=== PATIENT | male | born 1990 | race Caucasian/White ===

== ENCOUNTER 2023-10-14 16:10 | Emergency (ER) | payer SELFPAY ==
[2023-10-14 16:19] VITALS: BP 150/70; PULSE 78; RESP 16; TEMP 36.5
--- NOTE | 2023-10-14 16:45 | DI.RAD_ITS ---
Exam(s) XR KNEE RT 3V AP,LAT,MAHOGANY EXAM: XR KNEE RT 3V AP,LAT,MAHOGANY CLINICAL HISTORY: R knee pain. TECHNIQUE: 2D digital imaging was performed. Three views. COMPARISON: No exams were available for comparison FINDINGS: BONES: No acute fracture is present. No bony destructive lesion is seen. JOINTS: The knee is normally aligned. No joint effusion is seen. SOFT TISSUE: Normal. IMPRESSION: Unremarkable radiographs of the right knee. DATA REPOSITORY: RADIATION DOSE DELIVERED:
--- NOTE | 2023-10-14 18:04 | ED.GENADUL_ITS ---
Discharge Plan Disposition Patient Disposition: Home Condition: Stable Discharge Details Clinical Impression: Internal derangement of right knee Primary Care Provider: Unknown,Unknown ED Provider: David Goodrich Discharge Instructions Instructions: Knee Sprain (ED), Meniscus Tear (ED) Additional Instructions: You were seen in the emergency department for your right knee injury. I think you have an internal knee injury to ligament or possibly the meniscus. We are providing you with a hinged knee brace to use, please ambulate as tolerated, please follow-up with orthopedics for definitive evaluation, an MRI is the only study that can image the structures that I believe are injured in your knee. Please use therapeutic dosing of Tylenol (acetamenophen) & Advil (ibuprofen) in an alternating fashion as follows: Take 1000mg of Tylenol every 6 hours without missing doses- that is 4 times per day. Long Term in between the Tylenol dosings, take 400-600mg of Advil also on a 6 hour schedule, that is also 4 times per day. The daily maximum dosing of Tylenol is 4000mg, and the daily maximum dosing of Advil is 2400mg. This is safe to do for weeks. Please note that some common cold medications & prescription pain medications may contain acetamenophen and you need to read OTC drug labels and factor that in to maximum daily dosings. Referrals: [facility] [Provider Group] Discharge Data Discharge Date/Time-TO BE ENTERED AT DEPARTURE: 10/14/23 18:34 HPI General Date/Time Provider Initiated Documentation: 10/14/23 16:33 . HPI Narrative: 33 year-old male presents to ED today by POV/ambulating with a chief complaint of R knee pain with onset the past couple days. Patient is R-foot dominant. Quality described as feels like it locks up and clicks- denies trauma, no radiation to unilateral leg swelling, numbness/tingling, femur/garcia pain, is able to ambulate. Severity is described as moderate/10. Palliating factors include nothing specific. Provoking factors include nothing specific. Patient not anticoagulated. General Stated Complaint: Orthopedic EUSEBIO: 4 Review of Systems All systems reviewed & are unremarkable except as noted in HPI and below Exam Narrative Exam Narrative: GENERAL APPEARANCE: Well-nourished, non-toxic, awake and alert, atraumatic, no acute distress. SKIN: Warm, pink, dry, intact, without rashes/lesions/ulcerations. HEAD: Normocephalic, atraumatic, normal hair distribution for gender/age. EYES: Pupils PERRLA, EOMs intact without nystagmus, normal conjunctiva, no exudates on lids/lashes. ENT: Nares patent, no circumoral cyanosis, no facial swelling NECK: Supple, trachea midline, painless cervical ROM. LUNGS/CHEST: Non-labored respirations, normal A/P diameter, symmetrical expansion, no chest wall deformity HEART (CV/PV): No peripheral edema, no JVD. ABDOMEN: Soft, non-distended, no guarding. MSK: Normal ROM, no swelling/deformity to bilateral UEs or LEs, moving all extremities without weakness, no cyanosis, spine midline without tenderness, normal curvature. R LE: No tenderness with varus valgus forces, no ligamentous laxity with anterior drawer/Lico's test, Zoran positive possible lateral meniscal tear, no crepitus, neurovascular intact distal NEURO: Mental Status AAOx4 - alert to person, place, time, events No facial droop, no forehead involvement. Motor: No focal weakness - strength 5/5 in bilateral UEs and LEs, proximal and distal, symmetric. Sensory: sensation intact to light touch globally. Gait mildly antalgic R leg PSYCH: euthymic, cooperative, pleasant, appropriate speech Course Vital Signs Vital signs: Vital Signs Temperature 36.5 C 10/14/23 16:19 Pulse 78 10/14/23 16:19 Respiratory Rate 16 10/14/23 16:19 Blood Pressure 150/70 H 10/14/23 16:19 Temperature 36.5 C 10/14/23 16:19 Temperature Source Tympanic 10/14/23 16:19 Pulse 78 10/14/23 16:19 Respiratory Rate 16 10/14/23 16:19 Respiratory Effort Normal 10/14/23 17:03 Blood Pressure 150/70 H 10/14/23 16:19 Blood Pressure Position Sitting 10/14/23 16:19 Oxygen Delivery Method Room Air 10/14/23 16:19 Oxygen Flow Rate 0 10/14/23 16:19 Pain Level 6 10/14/23 17:03 Comment pain increases to 6/10 when walking. 10/14/23 16:19 Medical Decision Making This dictation utilizes [id number] dictation software and may contain unedited grammatical errors. 33 y/o M presents to ED today with a chief complaint of R knee pain, ongoing for a couple days, atraumatic onset- denies numbness/tingling, otherwise healthy. Patient is R-foot dominant. Patients' medical history: negative, otherwise healthy. Family and social history: works on his feet all day. Pertinent exam findings / vital signs include R LE: No tenderness with varus valgus forces, no ligamentous laxity with anterior drawer/Lico's test, Zoran positive possible lateral meniscal tear, no crepitus, neurovascular intact distal. Differential / pathologies of concern include Ligamentous Injury, Meniscus Tear, Fracture, Sprain/Strain. Diagnostic studies of: -XR R Knee - no acute fracture seen. Interventions of: -Hinged knee brace. ED Course/Assessment/Plan: 33-year-old otherwise healthy male presents with atraumatic right knee pain, is right foot dominant, there is question of meniscal injury on exam and no fracture seen on x-ray, he is neurovascularly intact distal, I provided hinged knee brace recommend RICE therapy as well as therapeutic dosing of APAP/NSAIDs and follow-up with orthopedics, the patient does not have insurance so I do not know if he will follow-up in a timely manner but he does have people in the community helping him to try and obtain health insurance. Findings not consistent with fracture or neurovascular compromise. Disposition of Internal Derangement of Right Knee. Patient verbalized understanding of the plan and return to ED criteria and engaged in shared decision making. Medical Records Medical records reviewed: Yes I reviewed the patient's medical records. Imaging Data Radiologic Study: Attestation: I personally reviewed and interpreted this imaging study as follows: Imaging: X-Ray Radiologist's impression: EXAM: XR KNEE RT 3V AP,LAT,MAHOGANY CLINICAL HISTORY: R knee pain. TECHNIQUE: 2D digital imaging was performed. Three views. COMPARISON: No exams were available for comparison FINDINGS: BONES: No acute fracture is present. No bony destructive lesion is seen. JOINTS: The knee is normally aligned. No joint effusion is seen. SOFT TISSUE: Normal. IMPRESSION: Unremarkable radiographs of the right knee. Quality:SDOH Health Related Social Needs: No Data to Display PFSH All Active Problems (Updated 10/14/23 @ 18:12 by DANIEL Wallis) Internal derangement of right knee (Acute) Social History Smoking risk assessment performed?: No Housing: house Do you feel safe at home: Yes Do you feel safe in your relationship?: Yes
== END 2023-10-14 18:34 | disposition home or self-care (01) ==
PROVIDERS: Emergency Provider Physician Assistant
DX: M23.91 Unspecified internal derangement of right knee (principal)
CPT/HCPCS: 73562; 99283

== ENCOUNTER 2024-06-03 21:45 | Emergency (ER) | payer SELFPAY ==
[2024-06-03 21:46] VITALS: BP 123/77; PULSE 96; RESP 20; TEMP 36.7; O2SAT 100
--- NOTE | 2024-06-03 22:00 | DI.RAD_ITS ---
Exam(s) XR CHEST 2V PA LATERAL EXAM: XR CHEST 2V PA LATERAL CLINICAL HISTORY: cough with R rib pain TECHNIQUE: 2D digital imaging was performed of the chest. Three images were obtained. PA and later al views were obtained. COMPARISON: No exams were available for comparison FINDINGS: MEDIASTINUM: Normal. HEART: Normal. PULMONARY VASCULATURE: Normal. LUNGS: The lungs are hyperinflated. No focal consolidation is seen. PLEURAL SPACE: No pleural effusion or pneumothorax. BONE:Within normal limits for the patient's age. There is a mild right convex thoracic scoliosis. OTHER FINDINGS:Normal. IMPRESSION: 1. No focal consolidating infiltrates. 2. Hyperinflation of the lungs which can reflect reactive airways disease. 3. No acute osseous abnormality. DATA REPOSITORY: RADIATION DOSE DELIVERED:
--- NOTE | 2024-06-03 22:08 | ED.GENADUL_ITS ---
Discharge Plan Disposition Patient Disposition: Home Discharge Details Clinical Impression: Cough Primary Care Provider: Unknown,Unknown ED Provider: Lou Lion Home Meds and New Rx's Prescriptions: New benzonatate 100 mg capsule 100 mg PO TID PRNQty: 14 0RF Discharge Instructions Instructions: Cough in adults Additional Instructions: Your chest x-ray did not show any signs of pneumonia. Your COVID/flu/RSV test were also negative. Your cough is most likely due to a viral illness. I recommend that instead of taking DayQuil or NyQuil you switch to Mucinex DM, which is an effective anticough medication. You may also use the benzonatate prescribed as needed. The discomfort in your ribs is likely muscle strain. You may use tylenol 650 mg every 6 hours or ibuprofen 400 mg every 8 hours as needed for discomfort. I recommend that you also use Vicks VapoRub, humidifier at bedside, and elevation of the head of your bed to help you with cough. While awake throat lozenges, pineapple juice, and tea with honey may also be soothing on the cough reflex. Return to emergency care if you develop new difficulty breathing, fevers associated with cough, or if you are very worried and need to be rechecked again immediately. HPI General Date/Time Provider Initiated Documentation: 06/03/24 21:51 . HPI Narrative: Richard is a 33 year old male who presents to the emergency dept for evaluation of cough x 2 days, he reports symptoms started 2 days ago with chills, progressed to cough that is occasionally productive of greenish sputum accompanied by right sided chest discomfort with coughing. He denies associated fever, congestion, sore throat, ear pain, shortness of breath, nausea/vomiting, change in bowel or bladder function, abdominal pain, rashes. No known COVID contacts. Physical exam very reassuring. Patient is alert and oriented, no acute distress. Easy work of breathing, lungs are clear bilaterally. Normal heart sounds. Normal gait. Mucous membrane DDx includes but is not limited to: Viral illness, postnasal drip associated cough, GERD, less likely pneumonia I independently interpreted the following tests: COVID/flu/RSV negative. Chest x-ray unremarkable, no obvious infiltrates noted. History and presentation consistent with viral cough, no indication at this time for starting antibiotics. Reviewed discharge instructions with patient, including symptomatic management, red flags indicate need for return to emergency care, and follow-up instructions if cough lasts longer than 3 weeks. He voices agreement with plan of care. Prescription for Lety Petty sent to pharmacy. Related Data Home Medications ?Medication ?Instructions ?Recorded ?Confirmed benzonatate 100 mg capsule 100 mg PO TID PRN #14 caps 06/03/24 Previous Rx's ?Medication ?Instructions ?Recorded benzonatate 100 mg capsule 100 mg PO TID PRN #14 caps 06/03/24 Allergies Allergy/AdvReac Type Severity Reaction Status Date / Time No Known Allergies Allergy Unverified 06/03/24 21:54 General Stated Complaint: GenMedical EUSEBIO: 3 Review of Systems Narrative: see HPI Exam Const General: cooperative, healthy appearing, comfortable, no acute distress, well developed and well groomed Nutritional Appearance: thin Orientation: alert and oriented x3 HENMT Head: normal to inspection Face and sinus: normal facial exam Mouth: moist mucous membranes Chest Chest: normal inspection of the chest and normal palpation of entire chest wall Resp Effort & Inspection: normal respiratory effort and able to speak in complete sentences Auscultation: clear to auscultation bilaterally Cardio Rate: regular rate Rhythm: regular rhythm Skin General skin exam: no rashes or lesions noted Course Vital Signs Vital signs: Vital Signs Temperature 36.7 C 06/03/24 21:46 Pulse 96 H 06/03/24 21:46 Respiratory Rate 20 06/03/24 21:46 Blood Pressure 123/77 06/03/24 21:46 Pulse Oximetry 100 06/03/24 21:46 Temperature 36.7 C 06/03/24 21:46 Temperature Source Temporal Artery Scan 06/03/24 21:46 Pulse 96 H 06/03/24 21:46 Respiratory Rate 20 06/03/24 21:46 Respiratory Effort Normal, Non-Labored 06/03/24 21:53 Blood Pressure 123/77 06/03/24 21:46 Pulse Oximetry 100 06/03/24 21:46 Oxygen Delivery Method Room Air 06/03/24 21:46 Oxygen Flow Rate 0 06/03/24 21:46 Pain Level 0 06/03/24 21:46 Medical Decision Making Quality:SDOH Health Related Social Needs: No Data to Display PFSH All Active Problems (Updated 06/03/24 @ 23:00 by Lou Dias) Cough (Acute) Social History Smoking/Tobacco Use Status: Never Smoking risk assessment performed?: Yes Substance use type: does not use Housing: house Do you feel safe at home: Yes Do you feel safe in your relationship?: Yes
--- OUTSIDE RECORDS SUMMARY | 2024-06-03 22:40 | XMS_ITS | Encounter Summary ---
Author Organization [facility] [place] [address] Care Team Providers Care Director Of Casino Marketing Name Role Phone Wilbert Dorman MD Primary Care Provider [phone] Encounter Details Date Type Department Care Team (Late st Contact Info) Description 07/28/2013 Telephone Pediatric [place] [phone] Heidy Hart RN Social History Tobacco Use Types Packs/Day Years Used Date Smoking Tobacco: Never Comments:No smokers in house hold Sex and Gender Information Value Date Recorded Sex Assigned at Not on file Gender Identity Not on file Sexual Orientation Not on file documented as of this encounter Miscellaneous Notes * Telephone Encounter - Heidy Hart RN - 07/28/2013 3:[address] Flood reviewed the lab work done on 06/27/13 at [facility] in [place], [place]. Mailed lab slip to home advising per Dr Flood, an AM LH,FSH,total Testosterone. Should return to see Dr Flood if labs remain low documented in this encounter Plan of Treatment Not on file documented as of this encounter Visit Diagnoses Not on filedocumented in this encounter Care Teams Director Of Casino Marketing Relationship Specialty Start Date End Date Wilbert Dorman MD [address] [address] PCP - General 07/09/10 documented as of this encounter
--- OUTSIDE RECORDS SUMMARY | 2024-06-03 22:40 | XMS_ITS | Encounter Summary ---
Author Organization [facility] [address] Care Team Providers Care Pin Drafter Name Role Phone Wilbert Dorman MD Primary Care Provider [phone] Encounter Details Date Type Department Care Team (Late st Contact Info) Description 09/05/2013 Telephone Pediatric [place] [phone] Heidy Hart RN Social History Tobacco Use Types Packs/Day Years Used Date Smoking Tobacco: Never Comments:No smokers in house hold Sex and Gender Information Value Date Recorded Sex Assigned at Not on file Gender Identity Not on file Sexual Orientation Not on file documented as of this encounter Miscellaneous Notes * Telephone Encounter - Heidy Hart RN - 09/05/2013 3:02 PM EST Message left on home answering machine re the 8AM lab work. Requested return call documented in this encounter Plan of Treatment Not on file documented as of this encounter Visit Diagnoses Not on filedocumented in this encounter Care Teams Pin Drafter Relationship Specialty Start Date End Date Wilbert Dorman MD [facility] [address] [place] [address] PCP - General 07/09/10 documented as of this encounter
--- OUTSIDE RECORDS SUMMARY | 2024-06-03 22:40 | XMS_ITS | Encounter Summary ---
Author Organization [facility] [place] [address] Care Team Providers Care Manager Of Program Name Role Phone Wilbert Dorman MD Primary Care Provider [phone] Encounter Details Date Type Department Care Team (Late st Contact Info) Description 04/04/2014 Telephone [place] [phone] Heidy Hart RN Social History Tobacco Use Types Packs/Day Years Used Date Smoking Tobacco: Never Comments:No smokers in house hold Sex and Gender Information Value Date Recorded Sex Assigned at Not on file Gender Identity Not on file Sexual Orientation Not on file documented as of this encounter Miscellaneous Notes * Telephone Encounter - Heidy Hart RN - 04/04/2014 8:46 AM EDT Multiple phone calls to family never returned. Will not plan further endocrine followup at this time documented in this encounter Plan of Treatment Not on file documented as of this encounter Visit Diagnoses Not on filedocumented in this encounter Care Teams Manager Of Program Relationship Specialty Start Date End Date Wilbert Dorman MD [facility] [address] [place] [address] PCP - General 07/09/10 documented as of this encounter
--- OUTSIDE RECORDS SUMMARY | 2024-06-03 22:40 | XMS_ITS | Encounter Summary ---
Author Organization [facility] Address [facility] [place] [address] Care Team Providers Care Undergraduate Advisor Name Role Phone Wilbert Dorman MD Primary Care Provider [phone] Encounter Details Date Type Department Care Team (Late st Contact Info) Description 07/28/2013 Orders Only Pediatric [place] [address] Jamshid Flood MD [facility] [address] [place] [address] Pubertal delay (Primary Dx) Social History Tobacco Use Types Packs/Day Years Used Date Smoking Tobacco: Never Comments:No smokers in house hold Sex and Gender Information Value Date Recorded Sex Assigned at Not on file Gender Identity Not on file Sexual Orientation Not on file documented as of this encounter Plan of Treatment Not on file documented as of this encounter Results * (ABNORMAL) Testosterone, total (06/27/2013 4:56 PM EST) Testosterone 153(EXTER NAL/ABN) EXTERNAL LAB Comment:[id number] ng/dL [facility] rp Blood specimen (specimen) 06/27/2013 4:56 PM EST Jamshid Flood MD CHEMISTRY ORDERABLES EXTERNAL LAB documented in this encounter Visit Diagnoses Diagnosis Pubertal delay- Primary Delay in sexual development and puberty, not elsewhere classified Pubertal delay Delay in sexual development and puberty, not elsewhere classified documented in this encounter Care Teams Undergraduate Advisor Relationship Specialty Start Date [place] [address] PCP - General 07/09/10 documented as of this encounter
--- OUTSIDE RECORDS SUMMARY | 2024-06-03 22:40 | XMS_ITS | Clinical Summary ---
Author Organization [facility] Address [facility] [place] [address] Care Team Providers Care Hospital Mortician Name Role Phone Wilbert Dorman MD Primary Care Provider [phone] Allergies No known active allergies Medications No known medications Active Problems Problem Noted Date Diagnosed Date Delayed puberty 06/18/2008 Overview (05/16/2012): Markedly delayed puberty. Treated with two courses of testosterone. Failed to progress after coming off therapy. Altered sense of smell, raising concern about Kallman syndrome. Assessment & Plan (12/24/2011 7:55 PM EDT): Richard has had very significant progression in his puberty. His testicular volume is now normal adult at 20-25 ml (increased from 6 ml at the last visit), and pubertal development is Abdulaziz V. If he does have Kallman syndrome, it must be a milder variant. We agreed to check his testosterone, LH and FSH locally. If those labs are normal, then I see no need for further testing. If his testosterone is inadequate, then we will arrange for [place] [facility] [place] we will recommend resumption of testosterone treatment. Given his physical findings, I do not think that treatment will be needed. Immunizations Name Administration Dates Next Due Influenza Vaccine, Whole 06/16/2008 Family History Medical History Relation Comments High Blood Pressure Maternal Grandfather High Cholesterol Maternal Grandfather Myocardial Infarction Maternal Grandfather * Paternal Grandfather Alzheimer Disease Paternal Grandfather Relation Status Comments Father Alive Maternal Grandfather Alive Maternal Grandmother Alive Mother Alive Paternal Grandfather Paternal Grandmother Alive Social History Tobacco Use Types Packs/Day Years Used Date Smoking Tobacco: Never Comments:No smokers in house hold Sex and Gender Information Value Date Recorded Sex Assigned at Not on file Gender Identity Not on file Sexual Orientation Not on file Last Filed Vital Signs Vital Sign Reading Time Taken Comments Blood Pressure 112/58 12/24/2011 2:15 PM EDT Pulse 65 12/24/2011 2:15 PM EDT Temperature - - Respiratory Rate 16 12/24/2011 2:15 PM EDT Oxygen Saturation - - Inhaled Oxygen Concentration - - Weight 85 kg (187 lb 6.4 oz) 12/24/2011 2:15 PM EDT Height 185.6 cm (6' 1.07) 12/24/2011 2:15 PM ED T Body Mass Index 24.68 12/24/2011 2:15 PM EDT Plan of Treatment Health Maintenance Due Date Last Done Comments HIV screen 2010 Hepatitis C Screening 2010 Hepatitis B vaccine (0-59 yrs) (1) 2011 Tetanus/Diphtheria/Pertussis Vaccines (1 - Tdap) 08/16 Covid-19 Vaccine (1 - 2022-24 season) 2024 Influenza (Flu) vaccine (1 o f 1 - Influenza standard series) 04/17/2024 06/16/2008 Care Teams Hospital Mortician Relationship Specialty Start Date End Date Wilbert Dorman MD [address] [address] PCP - General 07/09/10
--- OUTSIDE RECORDS SUMMARY | 2024-06-03 22:40 | XMS_ITS | Encounter Summary ---
Author Organization [facility] Address [facility] [place] [address] Care Team Providers Care Associate Financial Representative Name Role Phone Wilbert Dorman MD Primary Care Provider [phone] Encounter Details Date Type Department Care Team (Late st Contact Info) Description 08/01/2013 External Results Pediatric [place] [address] Jamshid Flood MD [facility] [place] [address] Pubertal delay Social History Tobacco Use Types Packs/Day Years Used Date Smoking Tobacco: Never Comments:No smokers in house hold Sex and Gender Information Value Date Recorded Sex Assigned at Not on file Gender Identity Not on file Sexual Orientation Not on file documented as of this encounter Plan of Treatment Not on file documented as of this encounter Procedures Procedure Name Priority Date/Time Associated Diagnosis Comments EXTERNAL LAB RESULTS Routine 06/27/2013 4:56 PM EST TESTOSTERONE, TOTAL Routine 06/27/2013 4 :56 PM EST Pubertal delay documented in this encounter Results * (ABNORMAL) External Lab Results (06/27/2013 4:56 PM EST) Testo Free (DECEMBER) 2.2(HYPNOTHERAPIST AL/ABN) EXTERNAL LAB Comment:[facility] 9.3-26.5 pg/ mL Blood specimen (specimen) 06/27/2013 4:56 PM EST Jamshid Flood MD CHEMISTRY ORDERABLES EXTERNAL LAB * (ABNORMAL) Testosterone, total (06/27/2013 4:56 PM EST) Testosterone 153(EXTER NAL/ABN) EXTERNAL LAB Comment:[id number] ng/dL [facility] rp Blood specimen (specimen) 06/27/2013 4:56 PM EST Jamshid Flood MD CHEMISTRY ORDERABLES Performing Organization Address City/[facility]/ZIP Co de Phone Number EXTERNAL LAB documented in this encounter Visit Diagnoses Diagnosis Pubertal delay Delay in sexual development and puberty, not elsewhere classified documented in this encounter Care Teams Associate Financial Representative Relationship Specialty Start Date End Date [place] [address] PCP - General 07/09/10 documented as of this encounter
--- OUTSIDE RECORDS SUMMARY | 2024-06-03 22:40 | XMS_ITS | Encounter Summary ---
Author Organization [facility] [place] [address] Care Team Providers Care Collision Estimator Name Role Phone Wilbert Dorman MD Primary Care Provider [phone] Encounter Details Date Type Department Care Team (Late st Contact Info) Description 01/14/2012 Telephone Pediatric [place] [id number] Heidy Hart RN Social History Tobacco Use Types Packs/Day Years Used Date Smoking Tobacco: Never Comments:No smokers in house hold Sex and Gender Information Value Date Recorded Sex Assigned at Not on file Gender Identity Not on file Sexual Orientation Not on file documented as of this encounter Miscellaneous Notes * Telephone Encounter - Heidy Hart RN - 01/27/2012 2:52 PM EDT . documented in this encounter Plan of Treatment Not on file documented as of this encounter Visit Diagnoses Not on filedocumented in this encounter Care Teams Collision Estimator Relationship Specialty Start Date End Date Wilbert Dorman MD [address] [address] PCP - General 07/09/10 documented as of this encounter
--- OUTSIDE RECORDS SUMMARY | 2024-06-03 22:41 | XMS_ITS | Encounter Summary ---
Author Organization [facility] Address [facility] [place] [address] Care Team Providers Care Household Refrigeration Mechanic Name Role Phone Wilbert Dorman MD Primary Care Provider Reason for Visit * Reason Comments Delayed Puberty Encounter Details Date Type Department Care Team (Latest Contact Info) Description 12/24/2011 2:30 PM EDT Office Visit [place] [address] Jennifer Denis MD [facility] [address] [place] [address] Delayed puberty (Primary Dx) Discharge Disposition: Home Social History Tobacco Use Types Packs/Day Years Used Date Smoking Tobacco: Never Comments:No smokers in house hold Sex and Gender Information Value Date Recorded Sex Assigned at Not on file Gender Identity Not on file Sexual Orientation Not on file documented as of this encounter Last Filed Vital Signs Vital Sign Reading [...] Mass Index 24.68 12/24/2011 2:15 PM EDT documented in this encounter Progress Notes * Jennifer Denis MD - 12/24/2011 8:07 PM EDT Subjective: Patient ID: Richard Thao is a 21 y.o. male. KATERINA Ramos has been followed in our clinic since 2007, when he presented with delayed puberty. He had two courses of low dose testosterone to induce puberty, but there was concern that he did not progress thereafter. Although his sense of smell was initially reported as normal, later observations suggested that he may have hyposmia (he can detect strong odors such as gasoline and burning food, but cannot detect foods by their odor (eg spaghetti sauce). It has been 18 months since he was seen in clinic. In the interval he has noticed further pubertal progression. He gets daily erections. He is not yet shaving. He has continued to grow in height and is now 6'1 tall. Today's visit was arranged to see if any endocrine treatment is needed. Review of Systems Constitutional: Negative. HENT: Negative. Eyes: Negative. Respiratory: Negative. Cardiovascular: Negative. Gastrointestinal: Negative. Genitourinary: Negative. Musculoskeletal: Negative. Skin: Dry skin Neurological: IEP in place. Hematological: Negative. Objective: Physical Exam Constitutional: He appears well-developed and well-nourished. No distress. HENT: High arched palate Eyes: Conjunctivae are normal. Pupils are equal, round, and reactive to light. No scleral icterus. Neck: No thyromegaly present. Cardiovascular: Normal rate and regular rhythm. Murmur (2/6 LILY without radiation) heard. Pulmonary/Chest: Effort normal and breath sounds normal. He has no wheezes. Abdominal: Soft. He exhibits no mass. No tenderness. Genitourinary: Penis normal. Abdulaziz 5 pubic hair. Testicles 20-25 ml bilaterally Musculoskeletal: He exhibits no edema. Lymphadenopathy: He has no cervical adenopathy. Neurological: He is alert. Skin: Skin is warm. No rash noted. Psychiatric: He has a normal mood and affect. His behavior is normal. BP 112/58 Pulse 65 Resp 16 Ht 185.6 cm (6' 1.07) Wt 85.004 kg (187 lb 6.4 oz) BMI 24.68 kg/m2 Assessment and Plan: Delayed puberty - JENNIFER DENIS MD 12/24/11 07:55 PM Signed Richard has had very significant progression in [...] for testing through Dr. Justice's [place] [facility] and we will recommend resumption of testosterone treatment. Given his physical findings, I do not think that treatmentwill be needed. Richard has a heart murmur that has been present on earlier exams. I believe it is functional, but since it has persisted into adulthood I recommended that the family discuss this with his PCP. documented in this encounter Miscellaneous Notes * Communication Body - Jennifer Denis MD - 12/24/2011 8:08 PM EDT Subjective: Patient ID: Richard Thao is a 21 y.o. male. HPI Richard has been followed in our clinic since 2007, when he presented with delayed puberty. He had two courses of low dose testosterone to induce puberty, but there was concern that he did not progress thereafter. Although his sense of smell was initially reported as normal, later observations suggested that he may have hyposmia (he can detect strong odors such as gasoline and burning food, but cannot detect foods by their odor (eg spaghetti sauce). It has been 18 months since he was seen in clinic. In the interval he has noticed further pubertal progression. He gets daily erections. He is not yet shaving. He has continued to grow in height and is now 6'1 tall. Today's visit was arranged to see if any endocrine treatment is needed. Review of Systems Constitutional: Negative. HENT: Negative. Eyes: Negative. Respiratory: Negative. Cardiovascular: Negative. Gastrointestinal: Negative. Genitourinary: Negative. Musculoskeletal: Negative. Skin: Dry skin Neurological: IEP in place. Hematological: Negative. Objective: Physical Exam Constitutional: He appears well-developed and well-nourished. No distress. HENT: High arched palate Eyes: Conjunctivae are normal. Pupils are equal, round, and reactive to light. No scleral icterus. Neck: No thyromegaly present. Cardiovascular: Normal rate and regular rhythm. Murmur (2/6 LILY without radiation) heard. Pulmonary/Chest: Effort normal and breath sounds normal. He has no wheezes. Abdominal: Soft. He exhibits no mass. No tenderness. Genitourinary: Penis normal. Abdulaziz 5 pubic hair. Testicles 20-25 ml bilaterally Musculoskeletal: He exhibits no edema. Lymphadenopathy: He has no cervical adenopathy. Neurological: He is alert. Skin: Skin is warm. No rash noted. Psychiatric: He has a normal mood and affect. His behavior is normal. BP 112/58 Pulse 65 Resp 16 Ht 185.6 cm (6' 1.07) Wt 85.004 kg (187 lb 6.4 oz) BMI 24.68 kg/m2 Assessment and Plan: Delayed puberty - JENNIFER DENIS MD 12/24/11 07:55 PM Signed Richard has had very significant progression in [...] we will arrange for testing through Dr. Justcie's study at [facility] and we will recommend resumption of testosterone treatment. Given his physical findings, I do not think that treatmentwill be needed. Richard has a heart murmur that has been present on earlier exams. I believe it is functional, but since it has persisted into adulthood I recommended that the family discuss this with his PCP. * Assessment & Plan Note - Jennifer Denis MD - 12/24/2011 7:55 PM EDT Associated Problem(s): Delayed puberty Richard has had very significant progression in [...] for testing through Dr. Justice's study at [facility] and we will recommend resumption of testosterone treatment. Given his physical findings, I do not think that treatmentwill be needed. documented in this encounter Plan of Treatment Not on file documented as of this encounter Visit Diagnoses Diagnosis Delayed puberty- Primary Delay in sexual development and puberty, not elsewhere classified documented in this encounter Care Teams Household Refrigeration Mechanic Relationship Specialty Start Date End Date Wilbert Dorman MD [address] [address] PCP - General 07/09/10 documented as of this encounter
--- OUTSIDE RECORDS SUMMARY | 2024-06-03 22:41 | XMS_ITS | Encounter Summary ---
Author Organization [facility] Address [facility] [place] [address] Care Team Providers Care Cbx Operator Name Role Phone Wilbert Dorman MD Primary Care Provider [phone] Encounter Details Date Type Department Care Team (Late st Contact Info) Description 12/30/2011 External Results [place] [address] Jamshid Flood MD [facility] [place] [address] Social History Tobacco Use Types Packs/Day Years Used Date Smoking Tobacco: Never Comments:No smokers in house hold Sex and Gender Information Value Date Recorded Sex Assigned at Not on file Gender Identity Not on file Sexual Orientation Not on file documented as of this encounter Progress Notes * Heidy Hart RN - 01/14/2012 4:50 PM EDTQuick Note: The Testosterone in much improved but low for adult per Dr Flood. Repeat AM testosterone in 4 months. Mother notified of the results. Mail lab slip in January for labs due early April 2012 * Jamshid Flood MD - 01/08/2012 10:25 PM EDTQuick Note: Let family know that testosterone is much improved (up from 11 at last check) but low for an adult.Recommend a repeat (am testosterone only) in 4 months. Will recommend treatment if no improvement. documented in this encounter Plan of Treatment Not on file documented as of this encounter Procedures Procedure Name Priority Date/Time Associated Diagnosis Comments EXTERNAL LAB RESULTS Routine 12/29/2011 documented in this encounter Results * External Lab Results (12/29/2011) Follicle Stimulating Hormone 1.7 Comment:[facility] Luteinizing Hormone 2.1 Testosterone 119 12/29/2011 Jamshid Flood MD CHEMISTRY ORDERABLES documented in this encounter Visit Diagnoses Not on filedocumented in this encounter Care Teams Cbx Operator Relationship Specialty Start Date End Date Wilbert Dorman MD [address] [address] PCP - General 07/09/10 documented as of this encounter
[2024-06-03 22:53] LABS: COVID-19 PCR Negative (Negative); Influenza A PCR Negative (Negative); Influenza B PCR Negative (Negative); RSV PCR Negative (Negative)
[2024-06-03 23:05] LABS: Source Nasopharynx
[2024-06-03 23:24] VITALS: PULSE 72
--- NOTE | 2024-06-03 23:26 | DI.VRAD_ITS ---
PROCEDURE INFORMATION: Exam: XR Chest Exam date and time: 06/03/2024 10:21 PM Age: 33 years old Clinical indication: Pain; Cough; Right-sided; Additional info: Cough with R rib pain TECHNIQUE: Imaging protocol: Radiologic exam of the chest. Views: 2 views. COMPARISON: No relevant prior studies available. FINDINGS: Lungs: Moderate hyperinflation. This could reflect air trapping from an upper respiratory infection or reactive airway disease. No infiltrative consolidation. No edema. Pleural spaces: No pleural effusion. No pneumothorax. Heart/Mediastinum: Normal heart size. No mediastinal widening. Bones/joints: Midthoracic spine mild dextroscoliosis. IMPRESSION: 1. No acute infiltrates or airspace consolidation. Nonspecific hyperinflation. Consider reactive airway disease or upper respiratory infection with air trapping. 2. No pleural effusion or pneumothorax. 3. Midthoracic spine mild dextroscoliosis. Dictated and Authenticated by: Cameron Kaplan MD. Ordering:ANURADHA Blake MD
== END 2024-06-03 23:26 | disposition home or self-care (01) ==
PROVIDERS: Emergency Provider Nurse Practitioner Family
DX: R05.9 Cough, unspecified (principal)
CPT/HCPCS: 87637; 99284; 71046

== ENCOUNTER 2025-05-31 14:44 | Emergency (ER) | payer SELFPAY ==
--- NOTE | 2025-05-31 14:45 | DI.RAD_ITS ---
Exam(s) XR RIBS RT W PA LAT CHEST CLINICAL HISTORY: right sided rib pain s/p fall 4 days ago. COMPARISON: CR,XR XR CHEST 2V PA LATERAL from 06/03/2024 TECHNIQUE:: PA and lateral views of the chest and four views of the right ribs were performed. FINDINGS: LUNGS:Clear. No pleural abnormality seen. HEART: Normal size. MEDIASTINUM: Normal. BONES: No displaced rib fracture is seen. No bony destructive lesion is seen. IMPRESSION: 1. Unremarkable radiographic appearance of the right ribs. 2. No acute pulmonary findings.
[2025-05-31 14:47] VITALS: BP 132/76; PULSE 79; RESP 20; TEMP 36.7; O2SAT 98
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
== END 2025-05-31 16:15 | disposition home or self-care (01) ==
PROVIDERS: Emergency Provider Emergency Medicine
DX: S29.8XXA Other specified injuries of thorax, initial encounter (principal); V86.55XA Driver of 3- or 4- wheeled all-terrain vehicle (ATV) injured in nontraffic accident, initial encounter
CPT/HCPCS: 99283 ×2; 71046; 71100